=== PATIENT | male | born 1975 | race African-American/Black ===

== ENCOUNTER 2024-01-25 16:34 | Emergency (ER) | payer MEDICAID ==
[~2024-01-25] VITALS: Ht 188 cm; Wt 120.0 kg
[2024-01-25 16:57] VITALS: BP 173/89; PULSE 93; RESP 18; TEMP 98.2; O2SAT 100
[2024-01-25] MEDS ORDERED: GUAI-450 MT (19:15)
[2024-01-25] MEDS ORDERED: CETI10CA2 MT (19:15)
== END 2024-01-25 19:26 | disposition home or self-care (01) ==
LOC: ER 16:34
DX: R05.9 Cough, unspecified (principal); F12.90 Cannabis use, unspecified, uncomplicated; E11.9 Type 2 diabetes mellitus without complications; Z98.890 Other specified postprocedural states
CPT/HCPCS: 71045; 99283

== ENCOUNTER 2024-04-06 01:10 | Emergency (ER) | payer MEDICAID ==
[~2024-04-06] VITALS: Ht 185.4 cm; Wt 113.0 kg
[~2024-04-06 01:10] MED LIST: CETI10CA2 MT; GUAI-450 MT
[2024-04-06 01:15] VITALS: O2SAT 100
[2024-04-06 02:22] VITALS: TEMP 98.1
[2024-04-06] MEDS: ASPIRIN 81MG TABLET PO ONE (02:38)
[2024-04-06] MEDS: SODIUM CHLORIDE 0.9% 1,000 ML IV ONE (02:38)
[2024-04-06 03:00] LABS: BASOPHILS % 0.8 % (0.0-2.0); EOSINOPHILS % 2.5 % (0.0-5.0); HEMATOCRIT. 39.6 % (42.0-52.0); HEMOGLOBIN. 13.1 g/dL (14.0-18.0); LYMPHOCYTES % 28.4 % (20.0-50.0); MEAN CORPUSCULAR HEMOGLOBIN 28.9 pg (28.0-32.0); MEAN CORPUSCULAR HGB CONC 33.2 g/dL (31.0-37.0); MEAN PLATELET VOLUME 8.8 fl (7.4-10.4); MONOCYTES % 8.3 % (2.0-8.0); PLATELET 211 x1000/uL (130-400); RED BLOOD CELL COUNT 4.55 mill/uL (4.7-6.1); WHITE BLOOD COUNT 7.7 x1000/uL (4.5-11.0)
[2024-04-06 03:06] LABS: CHLORIDE 104 mEq/L (98-107); POTASSIUM 3.7 mEq/L (3.5-5.1); SODIUM 137 mEq/L (136-145)
[2024-04-06 03:07] LABS: CALCIUM 9.1 mg/dL (8.7-10.4); CARBON DIOXIDE 26 mEq/L (21-32)
[2024-04-06 03:12] LABS: CREATININE 0.9 mg/dL (0.6-1.3); GLUCOSE 234 mg/dL (70-105); UREA NITROGEN BLOOD 10 mg/dL (9-23)
[2024-04-06 03:19] LABS: TROPONIN I HIGH SENSITIVITY < 4 ng/L (3.0-53)
[2024-04-06 04:30] VITALS: BP 131/82; PULSE 65; RESP 15
== END 2024-04-06 08:10 | disposition left against medical advice (07) ==
LOC: ER 01:23 → EDBEDREQ 02:45 → EDBEDREQTM 02:45 → ER 08:10 → CANBEDREQ 08:26
DX: R07.89 Other chest pain (principal); R94.31 Abnormal electrocardiogram [ECG] [EKG]; E11.9 Type 2 diabetes mellitus without complications; F12.10 Cannabis abuse, uncomplicated; Z98.890 Other specified postprocedural states
CPT/HCPCS: 80048; 85025; 84484; 36415; 71045; 93005; 96360; 99285; Z7610; J7030

== ENCOUNTER 2024-07-10 15:48 | Emergency (ER) | payer MEDICAID ==
[~2024-07-10] VITALS: Ht 188 cm; Wt 113.0 kg
[2024-07-10 15:50] VITALS: TEMP 98.4; O2SAT 98
[2024-07-10] MEDS: KETOROLAC 15MG/ML VIAL IM ONE (18:17)
[2024-07-10] MEDS: LIDOCAINE 5% PATCH TOP SCH (18:17)
[2024-07-10] MEDS ORDERED: NAPR-1176 MT (18:32)
[2024-07-10] MEDS ORDERED: LIDO700A15 TP (18:32)
[2024-07-10 18:56] VITALS: BP 122/86; PULSE 78; RESP 18; O2SAT 100
== END 2024-07-10 18:57 | disposition home or self-care (01) ==
LOC: ER 15:48
DX: M54.42 Lumbago with sciatica, left side (principal); E11.9 Type 2 diabetes mellitus without complications; Z79.1 Long term (current) use of non-steroidal anti-inflammatories (NSAID)
CPT/HCPCS: 99283; 96372; J1885